=== PATIENT | male | born 1965 | race Asian ===

== ENCOUNTER → 2017-11-27 | Day surgery (SDC) | payer BC, OTHER ==
[~2017-11-27] MED LIST: ALBUTEROL SULFATE 2.5 MG/3 ML NEBU. NEB PRN; ATROPINE 0.5 MG/5 ML DISP.SYRIN. IV PRN; IV RINGERS SOLUTION,LACTATED 1,000 ML IV SCH; LIDOCAINE 2% PF Vial for OR 5 ML VIAL. ONE; NALOXONE 0.4 MG/ML VIAL. IV PRN; ONDANSETRON PF 4 MG/2 ML VIAL. IV PRN; PROPOFOL 20 ML IV ONE; diphenhydrAMINE 50 MG/ML VIAL IV PRN
[2017-11-27 10:24] VITALS: BP 102/63
== END | disposition home or self-care (01) ==
LOC: SURG 08:21
PROVIDERS: ATTEND Internal Medicine Gastroenterology
DX: Z12.11 Encounter for screening for malignant neoplasm of colon (principal); K63.5 Polyp of colon; Z98.890 Other specified postprocedural states
CPT/HCPCS: 45385; J7120; J2704; J2001